=== PATIENT | male | born 1960 | race Caucasian/White ===

== ENCOUNTER 2020-06-19 10:08 | Outpatient (CLI) | payer BC, SELFPAY ==
--- NOTE | ~2020-06-19 | CT_ITS ---
EXAMINATION: CT lung screening DATE: 06/19/2020 10:33 INDICATION: Personal history of tobacco dependence, current smoker with 30 pack year history TECHNIQUE: Computed tomography (CT) of the chest was performed without intravenous contrast. The dose -length product (DLP) was 184.93 mGy-cm. Automated exposure control and iterative reconstruction tech [employer] were employed. COMPARISON: None FINDINGS: There is mild emphysema. There are multiple 2 to 4 mm nodules scattered throughout the lung s. The largest nodule identified is a 5 mm nodule in the right lower lobe on image 89. There is no pl eural effusion or pneumothorax. The lungs are free of acute opacities. No pathologically enlarged tho racic lymph nodes are identified. The heart size is normal. Calcified coronary artery atherosclerosis is noted. Subendocardial fat deposition in the interventricular septum and left ventricular apex is consistent with prior myocardial infarction. There is a 1.6 cm fat attenuation mass of the left adren al gland, consistent with a myelolipoma. There is mild thoracic spondylosis. IMPRESSION: 1. Lung-RADS category 2: Benign appearance or behavior. Continue annual screening with noncontrast lo w-dose chest CT in 12 months. Reviewed, dictated and finalized at location A. IMPRESSION: 1. Lung-RADS category 2: Benign appearance or behavior. Continue annual screeni ng with noncontrast low-dose chest CT in 12 months.
== END 2020-06-19 10:09 | disposition home or self-care (01) ==
LOC: ANHIMG 10:13
PROVIDERS: PCP Family Medicine; Visit Provider Family Medicine
DX: Z12.2 Encounter for screening for malignant neoplasm of respiratory organs (principal); Z87.891 Personal history of nicotine dependence
CPT/HCPCS: G0297

== ENCOUNTER 2021-07-25 15:18 | Outpatient (CLI) | payer BC, SELFPAY ==
--- NOTE | ~2021-07-25 | CT_ITS ---
EXAMINATION:CT lung screening DATE: 07/25/2021 15:37 INDICATION: Personal history of tobacco dependence. Current smoker with 30 pack year history. TECHNIQUE: Computed tomography (CT) of the chest was performed without intravenous contrast. Automate d exposure control and iterative reconstruction technique were employed. The dose-length product (DLP ) was 291.70 mGy-cm. COMPARISON: Chest CT 06/19/2020 FINDINGS: Calcified right lung nodules are consistent with old granulomatous disease. Again seen is a 5 mm nodule in right lower lobe. There are greater than 10 scattered nodules in the lungs measuring up to 4 mm. Most of these nodules are stable from the prior CT. No pleural effusion. The heart size i s normal. There are coronary artery calcifications. There are calcifications of aortic valve. No rod cardial effusion. There is a 2.0 cm mass in left adrenal gland containing fat, consistent with a myel olipoma. There are bridging endplate osteophytes at multiple levels in the spine, consistent with dif fuse idiopathic skeletal hyperostosis (DISH). IMPRESSION: 1. Lung-RADS category 2: Benign appearance or behavior. Continue annual screening with noncontrast lo w-dose chest CT in 12 months. Reviewed, dictated and finalized at location A. IMPRESSION: 1. Lung-RADS category 2: Benign appearance or behavior. Continue annual screeni ng with noncontrast low-dose chest CT in 12 months.
== END 2021-07-25 15:19 | disposition home or self-care (01) ==
LOC: ANHIMG 15:22
PROVIDERS: PCP Family Medicine; Visit Provider Family Medicine
DX: Z12.2 Encounter for screening for malignant neoplasm of respiratory organs (principal); Z87.891 Personal history of nicotine dependence
CPT/HCPCS: 71271

== ENCOUNTER → 2022-07-27 13:36 | Outpatient (CLI) | payer BC, SELFPAY ==
--- NOTE | ~2022-07-27 | CT_ITS ---
EXAMINATION: CT lung screening DATE: 07/27/2022 13:48 INDICATION: lung cancer screening TECHNIQUE: Computed tomography (CT) of the chest was performed without intravenous contrast. Addition al 3D reconstructions utilizing coronal maximum intensity projection (MIP) were performed. Automated exposure control and iterative reconstruction technique were employed. The dose-length product was 21 5.06 mGy-cm. COMPARISON: None FINDINGS: Again seen are several small calcified pulmonary nodules in the right middle lobe which along with ca lcified right hilar lymph nodes consistent with old granulomatous disease. There are few additional s mall noncalcified pulmonary nodules, the largest measuring 5 mm in the right lower lobe and remainder measuring <4 mm . HD identified nodules appears to been present on prior imaging from 06/19/2020. No n ew or enlarging pulmonary nodules identified. No pneumonia, pulmonary edema or pleural effusion. Hear t size is normal. Atherosclerotic coronary artery calcification. No pericardial effusion. Thoracic ao rta is normal in caliber. No pathologically enlarged thoracic lymphadenopathy. Diffuse hepatic steato sis. Unchanged 2.0 cm macroscopic fat containing left adrenal myelolipoma. Visualized upper abdomen i s otherwise unremarkable. There are bridging osteophytes at multiple levels in the spine, consistent with diffuse idiopathic skeletal hyperostosis (DISH). IMPRESSION: 1. Lung-RADS category 2: Benign appearance or behavior. Continue annual screening with noncontrast lo w-dose chest CT in 12 months. Reviewed, dictated and finalized at location B. IMPRESSION: 1. Lung-RADS category 2: Benign appearance or behavior. Continue annual screeni ng with noncontrast low-dose chest CT in 12 months.
== END ==
PROVIDERS: PCP Family Medicine; Visit Provider Family Medicine
DX: Z12.2 Encounter for screening for malignant neoplasm of respiratory organs (principal); Z87.891 Personal history of nicotine dependence
CPT/HCPCS: 71271

== ENCOUNTER 2023-09-01 01:14 | Day surgery (SDC) | payer BC, SELFPAY ==
[2023-08-20 14:13] VITALS: BMI 32.1
--- NOTE | 2023-08-30 09:35 | SUR.PREOP ---
Patient called regarding upcoming procedure. Reviewed preop instructions, appointment times, and procedure prep.
--- NOTE | 2023-08-31 17:12 | PM.HPGS ---
History of Present Illness History of Present Illness Consent: Risks, benefits, and alternatives have been discussed and questions answered. Patient agrees to proceed with procedure. Chief complaint: neoplasm screening, screening for malignant neopla Narrative: Yoshi Barrios is a 62 year old male Referred for colon cancer screening. He had a colonoscopy about 13 years ago with a finding of internal hemorrhoids. Review of Systems Review of Systems: All systems reviewed & are unremarkable except as noted in HPI and below PMFSH Past Medical History Medical History HLD (hyperlipidemia) Nicotine dependence Surgical History Surgical History History of appendectomy Family History Family History Mother Hypertension Heart disease Social History Social History Smoking packs per day: 0.75 Smoking cigarettes per day: 15.0 Years smoked: 45 Smoking pack-years: 33.75 Smoking status: Current every day smoker Tobacco type: cigarettes Alcohol intake: current Drinks per week: 6 Substance use: never Substance use type: does not use Living arrangements: other Additional living arrangements comments: With so Occupation/Education: occupation Gender identity (if verbalized by the patient): Male Meds Home Medications and Allergies Home Medications Medication Instructions Recorded Confirmed Type No Home Medications 06/12/20 09/01/23 History Allergies Allergy/AdvReac Type Severity Reaction Status Date / Time No Known Drug Allergies Allergy Unknown Unknown Verified 09/01/23 13:14 Exam Resp: Auscultation: clear to auscultation bilaterally Cardio: Rate: regular rate Rhythm: regular rhythm GI: GI Palp: Yes Soft to palpation and No Tenderness to palpation present (GI) Assessment and Plan Assessment and plan (1) Colon cancer screening: Code(s): Z12.11 - Encounter for screening for malignant neoplasm of colon Status: Acute Assessment and Plan: Colonoscopy with possible biopsy or polypectomy or cautery or injection of substances.
[2023-09-01 13:16] VITALS: BP 126/88; PULSE 75; RESP 20; TEMP 36.2; O2SAT 100
[2023-09-01] MEDS: LACTATED RINGERS 1,000 ML 150 ML IV CONT (13:19)
--- NOTE | 2023-09-01 13:56 | P.PNAN_ITS ---
Anes - Initial Pre Proc Eval Procedure: Operation Date: 09/01/23 14:30 Proposed Procedures p Screening Colonoscopy - Leon Knight MD Date/Time: 09/01/23 13:56 Surgeon: Leon Knight MD Pre Op Diagnosis: neoplasm screening, screening for malignant neopla Patient Data Age: 62 Gender: M Height: 1.8 m Weight: 32.1 kg Last Vital Signs Temp 97.1 F L 09/01/23 13:16 Pulse 75 09/01/23 13:16 Resp 20 09/01/23 13:16 BP 126/88 09/01/23 13:16 Pulse Ox 100 09/01/23 13:16 O2 Del Method Room Air 09/01/23 13:16 Allergies Allergy/AdvReac Type Severity Reaction Status Date / Time No Known Drug Allergies Allergy Unknown Unknown Verified 09/01/23 13:14 Home Medications Medication Instructions Recorded Confirmed Type No Home Medications 06/12/20 09/01/23 History Patient hx anesthesia problems: none Family hx anesthesia problems: none Results Review: All pre-operative results and documents have been reviewed as part of the pre- operative evaluation. [facility] Past Medical History Medical History HLD (hyperlipidemia) Nicotine dependence Surgical History Surgical History History of appendectomy Family History Family History Mother Hypertension Heart disease Social History Social History Smoking packs per day: 0.75 Smoking cigarettes per day: 15.0 Years smoked: 45 Smoking pack-years: 33.75 Smoking status: Current every day smoker Tobacco type: cigarettes Alcohol intake: current Drinks per week: 6 Substance use: never Substance use type: does not use Living arrangements: other Additional living arrangements comments: With so Occupation/Education: occupation Gender identity (if verbalized by the patient): Male Anes - Eval Final PreProcedure Day of Procedure 09/01/23 13:56 Patient weight: normal Heart: regular rate and rhythm Lungs: clear to auscultation Airway: Mallampati scale class II Neurological: alert and oriented Last oral intake: >/= 8 hours ASA classification: II Emergent: no Anesthetic plan: proceed Anesthesia type and monitoring: general GIVS and standard monitoring Results Review: All pre-operative results and documents have been reviewed as part of the pre- operative evaluation. Informed Consent: The patient's anesthetic plan and its attendant risks and benefits were discussed with the patient/family/POA. Questions were solicited and answers provided to the satisfaction of the patient/family/POA.
[2023-09-01 14:22] VITALS: BP 110/75; PULSE 72; RESP 25; O2SAT 99
[2023-09-01 14:32] VITALS: BP 125/75; PULSE 68; RESP 21; O2SAT 98
[2023-09-01 14:42] VITALS: BP 136/72; PULSE 58; RESP 18; O2SAT 100
== END 2023-09-01 14:56 | disposition home or self-care (01) ==
PROVIDERS: PCP Family Medicine; Visit Provider Internal Medicine Gastroenterology
PROC: 0DJD8ZZ Inspection of Lower Intestinal Tract, Via Natural or Artificial Opening Endoscopic (ICD-10-PCS; CPT 45378; principal; 2023-09-01 14:30)
DX: Z12.11 Encounter for screening for malignant neoplasm of colon (principal); D12.4 Benign neoplasm of descending colon; D12.8 Benign neoplasm of rectum; F17.210 Nicotine dependence, cigarettes, uncomplicated
CPT/HCPCS: 45385; 88305; J2704; J7120

== ENCOUNTER 2024-07-11 08:41 | Outpatient (CLI) | payer BC, SELFPAY ==
--- NOTE | ~2024-07-11 | CT_ITS ---
CT Scan of the Chest without Contrast: Clinical Indication: Lung cancer screening, nicotine dependence Technique: Contiguous sections were acquired throughout the chest without intravenous contrast. Dose reduction technique was used on this scan by utilizing automated exposure control and iterative recon struction technique. The dose-length product (DLP) was 182.82 mGy-cm. COMPARISON: 07/27/2022 Findings: There is no evidence of any significant mediastinal, hilar or axillary lymphadenopathy. Coronary isabela ry calcifications are present. There is no evidence of pleural or pericardial effusion. Stable 4 mm right lower lobe pulmonary nodule (axial image 86). Calcified right middle lobe granuloma s are present. Stable 3 mm left lower lobe pulmonary nodule. Images through the upper abdomen reveal left adrenal myelolipoma. Impression: Lung RADS 2: Benign appearance. 12 month follow-up screening CT advised. Reviewed, dictated and finalized at [facility]. Impression: Lung RADS 2: Benign appearance. 12 month follow-up screening CT advised.
== END 2024-07-11 08:42 | disposition home or self-care (01) ==
LOC: MICIMG 08:42
PROVIDERS: PCP Family Medicine; Visit Provider Family Medicine
DX: Z12.2 Encounter for screening for malignant neoplasm of respiratory organs (principal); Z87.891 Personal history of nicotine dependence
CPT/HCPCS: 71271

== ENCOUNTER 2025-08-30 10:53 | Outpatient (CLI) | payer BC, SELFPAY ==
--- OUTSIDE RECORDS SUMMARY | 2025-08-30 12:04 | XMS_ITS | Clinical Summary ---
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 Images [address] [place] [address] Discharge Disposition: Discharge to home or self care 07/31/2025 8:21 AM CDT - 07/31/2025 11:59 PM CDT Hospital Encounter [id number] [place] [address] Nicotine dependence, cigarettes, uncomplicated Discharge Disposition: Discharge to home or self care from Last 3 Months Social History Tobacco Use Types Packs/Day Years Used Date Smoking Tobacco: Never Assessed Sex and Gender Information Value Date Recorded Sex Assigned at Not on file Legal Sex Male 11:57 AM CDT Gender Identity Not on file Sexual Orientation Not on file Plan of Treatment Health Maintenance Due Date Last Done Comments Colon Cancer Screening-Colonoscopy 1962 Depression Screening 1962 Hepatitis C Screening 1962 Prostate Cancer Screening-PSA 1962 DTaP/Tdap/Td Vaccine (1 - Tdap) 1973 Hepatitis B Screening 1980 Regular Well Visit/Exam 18-64 1980 Zoster Vaccine (1 of 2) 2012 Influenza Vaccine (#1) 2025 Lung Cancer Screening 08/01/2026 07/31/2025 Pneumococcal vaccine <65 Aged Out No longer eligible based on patient's age to complete this topic Procedures Procedure Name Priority Date/Time Associated Diagnosis Comments CT BODY OUTSIDE REFERENCE Routine 07/31/2025 8:[address] LUNG CANCER SCREENING Schedule Routine, Read Routine (OP Routine) 07/31/2025 8:35 AM CDT Nicotine dependence, cigarettes, uncomplicated from Last 3 Months Results * CT Body Outside Reference (07/31/2025 8:45 AM CDT) Narrative [facility] - 07/31/2025 8:45 AM CDT This order has been auto-finalized and does not contain a result. us Karlos Carson MD IMG CT PROCEDURES Aundrea l Result [id number] * CT Lung Cancer Screening (07/31/2025 8:35 AM CDT) Anatomical Region Laterality Modality Chest N/A Computed Tomogra phy 07/31/2025 1:18 PM CDT Narrative 07/31/2025 1:28 PM CDT EXAM DESCRIPTION: CT LUNG CANCER SCREENING REASON FOR STUDY: Screening CT of the chest in a current smoker with a 40 pack year smoking history. Additional history: None. TECHNIQUE: Low dose CT scan of the chest was performed without intravenous contrast using helical scanning technique. The exam extends from the lung apices through the lung bases. Automatic exposure control was used as a dose optimization technique. NOTE: This study was performed for the specific purposes of lung cancer screening and is not an alternative to diagnostic chest CT. RADIATION DOSE: CT dose index volume (CTDIvol) = 1.78 mGy COMPARISON: None FINDINGS: SMOKING RELATED LUNG DISEASE: Mild emphysema LUNG NODULES: Bilateral pulmonary nodules include 3 mm nodule in the right upper lobe (4/60), 2 mm nodule in the left lower lobe (4/105), 4 mm nodule in the left upper lobe (4/146), 3 mm nodule in the right upper lobe (4/175), 5 mm nodule in the right lower lobe (4/218)). CORONARY ARTERY CALCIFICATION: Present OTHER: No focal consolidation, pleural effusion or pneumothorax. Normal-sized heart without pericardial effusion. Normal caliber of the great vessels. Atherosclerotic calcification of the aorta and coronary arteries. No pleural effusion. No thoracic lymphadenopathy. Visualized upper abdomen demonstrates no acute findings. No suspicious osseous findings. IMPRESSION: Bilateral pulmonary nodules measuring up to 5 mm. No suspicious pulmonary nodule Lung-RADS category 2: Benign appearance or behavior. Recommendation: Low dose Screening CT of chest in 12 months. THIS IS AN ELECTRONICALLY VERIFIED FINAL REPORT 07/31/2025 1:28 PM - Electronically signed by Demi Linder M.D. FT T: Report ID: [id number] Reading Location: [place] [address] Procedure Note Demi Lanier MD - 07/31/2025 EXAM DESCRIPTION: CT LUNG CANCER SCREENING REASON FOR STUDY: Screening CT of the chest in a current smoker with a40 pack year smoking history. Additional history: None. TECHNIQUE: Low dose CT scan of the chest was performed without intravenous contrast using helical scanning technique. The exam extends from the lung apices through the lung bases. Automatic exposure control was used as adose optimization technique. NOTE: This study was performed for the specific purposes of lung cancer screening and is not an alternative to diagnostic chest CT. RADIATION DOSE: CT dose index volume (CTDIvol) = 1.78 mGy COMPARISON: None FINDINGS: SMOKING RELATED LUNG DISEASE: Mild emphysema LUNG NODULES: Bilateral pulmonary nodules include 3 mm nodule in theright upper lobe (4/60), 2 mm nodule in the left lower lobe (4/105), 4 mm nodulein the left upper lobe (4/146), 3 mm nodule in the right upper lobe (4/175),5 mm nodule in the right lower lobe (4/218)). CORONARY ARTERY CALCIFICATION: Present OTHER: No focal consolidation, pleural effusion or pneumothorax. Normal-sized heart without pericardial effusion. Normal caliber of thegreat vessels. Atherosclerotic calcification of the aorta and coronary arteries.No pleural effusion. No thoracic lymphadenopathy. Visualized upper abdomen demonstrates no acute findings. No suspicious osseous findings. IMPRESSION: Bilateral pulmonary nodules measuring up to 5 mm. Nosuspicious pulmonary nodule Lung-RADS category 2: Benign appearance or behavior. Recommendation: Low dose Screening CT of chest in 12 months. THIS IS AN ELECTRONICALLY VERIFIED FINAL REPORT 07/31/2025 1:28 PM - Electronically signed by Demi Linder M.D. 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
--- NOTE | 2025-09-12 20:27 | WPDHOLTEREM ---
Holter/Event Monitor Holter/Event Monitor Date of procedure: 08/30/25 Holter/Event Procedure: 3-7 Day Holter Monitor Indications: Palpitations Conclusion: 1. 7 days holter monitor on 08/30/25. 2. Predominant rhythm is sinus rhythm. HR range 46-210 bpm; average HR 80 bpm. 3. There are frequent premature supraventricular complexes at 15.5%, intermittent supraventricular couplets at 8.2%, occasional supraventricular triplets. There are intermittent episodes of atrial fibrillation/flutter with burden of 7%, HR range 75-210 bpm and longest lasting 4 hours and 42 minutes. 4. There are rare premature ventricular complexes. There is 1 episode of ventricular tachycardia at 108 bpm lasting 4 beats. 5. No significant pauses greater than 3 seconds. 6. Patient reports 4 episodes of symptoms of irregular beats, lightheadedness which demonstrate sinus rhythm, HR range 86-109 with 4 episodes with PAC's.
== END 2025-08-30 10:54 | disposition home or self-care (01) ==
PROVIDERS: PCP Family Medicine; Visit Provider Physician Assistant
DX: I49.1 Atrial premature depolarization (principal); I48.91 Unspecified atrial fibrillation; I48.92 Unspecified atrial flutter
CPT/HCPCS: 93242